=== PATIENT | female | born 1985 | race Caucasian/White ===

== ENCOUNTER → 2018-08-21 | Outpatient (CLI) | payer BC ==
[~2018-08-21] MED LIST: ACET10SO PO; ADV250/50 IH; AMOX500C7 PO; BENZ200C15 PO; CLIN300C99 PO; EPIN0.3P14 IM; ETHI1TAB25 PO; MULT1CAP41 PO; OXYC1TAB54 PO; PREN-127 PO; SERT-184 PO; SERT25TA87 PO
[2018-08-21 10:21] LABS: PLATELET COUNT, AUTOMATED 305 K/uL (150-450)
== END ==
LOC: LAB 08:06
PROVIDERS: ATTEND Obstetrics & Gynecology
DX: Z34.81 Encounter for supervision of other normal pregnancy, first trimester (principal)
CPT/HCPCS: 36415; 81001; 85025; 86592; 86703; 86762; 86850; 86900; 86901; 87088; 87340